=== PATIENT | female | born 2000 | race African-American/Black ===

== ENCOUNTER 2019-01-10 18:46 | Emergency (ER) | payer SELFPAY ==
[~2019-01-10] VITALS: Ht 170.2 cm; Wt 104.5 kg
[2019-01-10] MEDS ORDERED: IBUPROFEN 600 MG TABLET PO ONE (19:15)
[2019-01-10] MEDS ORDERED: DEXAMETHASONE 4 MG TABLET PO ONE (19:15)
[2019-01-10] MEDS ORDERED: CefTRIAXone 1 GM/DEXTROSE 50 ML IV ONE (19:30)
[2019-01-10] MEDS ORDERED: DEXAMETHASONE SOD PHOS 4 MG/ML 5 ML VIAL IVP ONE (19:30)
[2019-01-10] MEDS ORDERED: SODIUM CHLORIDE 0.9% 1,000 ML IV ONE (19:30)
[2019-01-10] MEDS ORDERED: MethylPREDNISolone SOD SUCC 125 MG/2 ML VIAL IVP ONE (19:30)
[2019-01-10] MEDS ORDERED: KETOROLAC TROMETHAMINE 30 MG/ML VIAL IVP ONE (19:30)
[2019-01-10] MEDS ORDERED: CLINDAMYCIN 300 MG/D5% WATER 50 ML IV ONE (19:30)
[2019-01-10 20:39] VITALS: BP 121/77
== END 2019-01-10 21:06 | disposition home or self-care (01) ==
LOC: EMS 18:48
DX: J36 Peritonsillar abscess (principal); F17.210 Nicotine dependence, cigarettes, uncomplicated
CPT/HCPCS: 96365; 96367; 96375; 99283; J0696; J1100; J1885; J2930; J3490; J7030

== ENCOUNTER 2020-12-29 10:50 | Observation (INO) | payer MEDICAID, OTHER ==
[2020-12-29] MEDS ORDERED: PNV1TABL89 PO (11:38)
[2020-12-29 12:00] VITALS: BP 135/63
== END 2020-12-29 13:00 | disposition home or self-care (01) ==
LOC: 4S 10:50
PROVIDERS: ADMIT Obstetrics & Gynecology; ATTEND Obstetrics & Gynecology
DX: O26.892 Other specified pregnancy related conditions, second trimester (principal); R10.9 Unspecified abdominal pain; Z3A.26 26 weeks gestation of pregnancy
CPT/HCPCS: 59025; 99219